=== PATIENT | female | born 1990 | race Caucasian/White ===

== ENCOUNTER 2019-10-05 10:38 | Emergency (ER) | payer BC, SELFPAY ==
[2019-10-05 10:49] VITALS: BP 137/91; PULSE 76; RESP 16; TEMP 36.9; O2SAT 99
--- NOTE | 2019-10-05 10:57 | ED.GENADULT ---
HPI - General Adult General Chief complaint: Skin/Abscess/Foreign Body Stated complaint: rash on feet & legs Time Seen by Provider: 10/05/19 10:57 Source: patient and RN notes reviewed Mode of arrival: ambulatory Limitations: no limitations History of Present Illness HPI narrative: This is a 29 years old female presented office for an evaluation of itchy rash on her feet. She noticed it yesterday around 5 PM while sitting on the sofa. It started very small in one of her feet and then it spread to both feet over night and worse this morning. She also notices some swelling and redness. Denies new medication, drugs, lotion, shoes, clothes or food. The only thing that was new for her was dental extraction that she had on Wednesday with localize anesthesia procedure. She was only taking Tylenol for pain; no prescription pain medications. Related Data Home Medications Medication Instructions Recorded Confirmed Iud 10/05/19 Tylenol 10/05/19 Zyrtec 10/05/19 albuterol sulfate [Ventolin HFA] INHALATION 10/05/19 bupropion HCl mg PO 10/05/19 fluticasone propion-salmeterol INHALATION 10/05/19 [Advair Diskus] lamotrigine 10/05/19 Allergies Allergy/AdvReac Type Severity Reaction Status Date / Time azithromycin Allergy Unknown Verified 06/06/17 09:57 lactose Allergy Unknown Verified 06/06/17 09:57 kathi Allergy Unknown Verified 06/06/17 09:57 Review of Systems Review of Systems: Narrative: CONSTITUTIONAL: Denies fever, chills CARDIOVASCULAR: Denies chest pain RESPIRATORY: Denies dyspnea, cough GASTROINTESTINAL: Denies abdominal pain, nausea, vomiting SKIN:Reports itchy rash on her feet MUSCULOSKELETAL: Denies acute back pain NEUROLOGIC: Denies lightheaded All systems reviewed & are unremarkable except as noted in HPI and below PMFSH Comments At time of signature, I agree with nursing past medical, surgical, social and family history. There is no relevant family history pertinent to the presenting complaint. Exam Narrative: Exam Narrative: GENERAL: This is a well-nourished, well-developed patient, in no apparent distress. THROAT: Mucous membranes moist, posterior pharynx clear. NECK: Neck supple, non-tender without lymphadenopathy, masses or thyromegaly. CARDIOVASCULAR: Regular rate and rhythm without murmurs, gallops, or rubs. RESPIRATORY: Clear to auscultation. Breath sounds equal bilaterally. No wheezes, rales, or rhonchi. GASTROINTESTINAL: Abdomen soft, non-tender, nondistended. Bowel sounds are active.No guarding. SKIN: bilateral feet noted wheel with urticaria that limited to ankles. No calf swelling/tenderness. NEURO: awake, alert, and oriented to person, place and time. There were no obvious focal neurologic abnormalities. Steady gait EXTREMITIES: Normal range of motion. [place] Coma Scale Eye Opening: Spontaneous 4 [place] Coma Scale Motor: Obeys Commands 6 [place] Coma Scale Verbal: Oriented 5 Course Vital Signs Vital signs: Vital Signs Temperature 98.5 F 10/05/19 10:49 Pulse Rate 76 10/05/19 10:49 Respiratory Rate 16 10/05/19 10:49 Blood Pressure 137/91 H 10/05/19 10:49 Pulse Oximetry 99 10/05/19 10:49 Temperature 98.5 F 10/05/19 10:49 Pulse Rate 76 10/05/19 10:49 Respiratory Rate 16 10/05/19 10:49 Blood Pressure 137/91 H 10/05/19 10:49 Pulse Oximetry 99 10/05/19 10:49 Medical Decision Making MDM Narrative Medical decision making narrative: Elevated BP noted: patient is informed that they may have pre-hypertension or hypertension based on a blood pressure reading in the department. I recommend the patient call the primary care provider listed on their discharge instructions or a physician of their choice this week to arrange follow-up for further evaluation of possible pre-hypertension or hypertension within 1-2week. Discharge instructions reviewed with patient, as well as provided in writing per nursing staff. The instructions also include specifi
== END 2019-10-05 11:13 | disposition home or self-care (01) ==
PROVIDERS: Emergency Provider Nurse Practitioner; PCP Nurse Practitioner
DX: L50.9 Urticaria, unspecified (principal); J45.909 Unspecified asthma, uncomplicated; Z98.1 Arthrodesis status; R03.0 Elevated blood-pressure reading, without diagnosis of hypertension; F31.9 Bipolar disorder, unspecified
CPT/HCPCS: 99213; G0463

== ENCOUNTER 2020-02-04 12:44 | Emergency (ER) | payer BC, SELFPAY ==
--- NOTE | ~2020-02-04 | CT_ITS ---
EXAMINATION: CT cervical spine w con DATE: 02/04/2020 13:44 INDICATION: Right upper extremity numbness. TECHNIQUE: Computed tomography (CT) of the cervical spine was performed with 100 mL Omnipaque 350 int ravenous contrast. Automated exposure control and iterative reconstruction technique were employed. T he dose-length product was 322.07 mGy-cm. COMPARISON: None FINDINGS: There is kyphosis and 5 degrees dextrocurvature of cervical spine. Vertebral body heights a re normal. There are changes of anterior fusion procedure at C6-C7 with interbody device and anterior plate and screws. There is mildly decreased disc height at C4-C5 and C5-C6. The following disc level s are specifically discussed: C2-C3: There is no uncovertebral joint osteoarthritis. There is mild right facet joint osteoarthritis . There is no neural foraminal stenosis. There is no central canal stenosis. C3-C4: There is no uncovertebral joint osteoarthritis. There is no facet joint osteoarthritis. There is no neural foraminal stenosis. There is no central canal stenosis. C4-C5: There is no uncovertebral joint osteoarthritis. There is no facet joint osteoarthritis. There is no neural foraminal stenosis. There is mild central canal stenosis. C5-C6: There is no uncovertebral joint osteoarthritis. There is mild bilateral facet joint osteoarthr itis. There is no neural foraminal stenosis. There is mild central canal stenosis. C6-C7: There is no uncovertebral joint hypertrophy. There is no facet joint osteoarthritis. There is no neural foraminal stenosis. There is no central canal stenosis. C7-T1: There is no uncovertebral joint osteoarthritis. There is mild bilateral facet joint osteoarthr itis. There is no neural foraminal stenosis. There is no central canal stenosis. IMPRESSION: 1. Mild cervical spondylosis. 2. Anterior fusion procedure at C6-C7. Reviewed, dictated and finalized at location A.
[2020-02-04 12:45] VITALS: BP 130/86; PULSE 93; RESP 18; TEMP 36.3; O2SAT 100
[2020-02-04 12:49] VITALS: BP 130/86; PULSE 93; RESP 18; TEMP 36.3; O2SAT 100
[2020-02-04] MEDS: diazePAM INJ (*CRX) 10 MG/2 ML SYRINGE 5 MG IV PUSH (13:07)
[2020-02-04 13:12] LABS: Basophils Absolute Auto 0.1 K/mm3 (0.0-0.1); Basophils Percent Auto 0.9 % (0.2-1.2); Eosinophils Absolute Auto 0.2 K/mm3 (0-0.3); Eosinophils Percent Auto 2.7 % (0-4.4); Hematocrit 40.1 % (37.0-47.0); Hemoglobin 13.2 g/dL (12.0-15.0); Immature Granulocyte Absolute 0.01 K/mm3 (0.00-0.031); Immature Granulocyte Percent A 0.2 % (0-0.5); Lymphocytes Absolute Auto 2.55 K/mm3 (0.9-3.2); Lymphocytes Percent Auto 38.6 % (18.3-44.2); Mean Corpuscular HGB Conc 32.9 g/dl (32-36); Mean Corpuscular Hemoglobin 29.7 pg (26-34); Mean Corpuscular Volume 90.1 fl (80-100); Mean Platelet Volume 9.9 fl (7.4-10.4); Monocytes Absolute Auto 0.4 K/mm3 (0.1-0.6); Monocytes Percent Auto 5.9 % (2.6-8.5); Neutrophils Absolute Auto 3.4 K/mm3 (1.3-6.7); Neutrophils Percent Auto 51.7 % (45.5-73.1); Platelet Count Result 397 k/mm3 (150-375); Red Blood Count 4.45 M/mm3 (4.2-5.4); Red Cell Distribution Width 12.8 % (11.5-14.5); White Blood Count 6.6 K/mm3 (4.5-10.0)
[2020-02-04 13:23] LABS: Anion Gap 10 mmol/L (8-16); Blood Urea Nitrogen 5 mg/dL (7-17); Calcium 9.7 mg/dL (8.4-10.2); Carbon Dioxide 23 mmol/L (22-30); Chloride 107 mmol/L (98-107); Estimated CRCL calculation 110 ml/min; Estimated Glomerular Filt Rate > 60; Glucose 109 mg/dL (65-105); Potassium 3.8 mmol/L (3.4-5.0); Sodium 140 mmol/L (137-145)
--- NOTE | 2020-02-04 13:34 | ED.NEUROSD ---
HPI - Neuro Symptoms/Deficit General Chief Complaint: Neuro Symptoms/Deficit Stated Complaint: HANDS NUMB AND TINGLING Time Seen by Provider: 02/04/20 12:53 History of Present Illness HPI Narrative: Patient is a 29-year-old female who presents ER with numbness of her face and arms. Patient reports she was driving to work when she had sudden onset tingling/numbness in her right arm. It then also into her left arm and her face. She thinks the facial tingling is similar to her anxiety. Unfortunately patient has recently had a neck fusion couple months ago at [facility]. It was for similar symptoms in the arms. She reports over the last couple days she started having tightness on the right side of her neck as well as some pain. She has had no numbness or tingling since her surgery. She has no fevers or chills or sweats. No focal weakness that she reports. No trauma to the neck or head. Related Data Home Medications Medication Instructions Recorded Confirmed bupropion HCl 150 mg PO DAILY 10/05/19 02/04/20 lamotrigine 150 mg PO DAILY 10/05/19 02/04/20 Allergies Allergy/AdvReac Type Severity Reaction Status Date / Time azithromycin Allergy Unknown Unknown Verified 02/04/20 12:46 lactose Allergy Unknown Unknown Verified 02/04/20 12:46 kathi Allergy Unknown Unknown Verified 02/04/20 12:46 Review of Systems Review of Systems: All systems reviewed & are unremarkable except as noted in HPI and below Constitutional: Constitutional: Denies chills, Denies fever(s) and Denies weakness Musculoskeletal: Musculoskeletal: Denies back pain and Reports muscle cramps Comments: Neck pain Neurologic: Denies headache(s), Denies focal weakness and Reports numbness PMFSH Past Medical History Medical History (Updated 02/04/20 @ 14:47 by Azael Esteves MD) Bipolar disorder Cervical fusion syndrome Social History Social History (Updated 02/04/20 @ 13:37 by Azael Esteves MD) Smoking status: Light tobacco smoker Exam Narrative: Exam Narrative: GENERAL: Well-appearing, well-nourished, and in no acute distress. HEAD: Normocephalic, atraumatic. NECK: Supple. Range of motion intact. Mild midline tenderness lower cervical spine your C6. She also has some mild paraspinal muscular tenderness along cervical spine extending into the trapezius muscles on the right side. CHEST: Clear to auscultation. No respiratory distress. HEART: Regular rate and rhythm. Normal peripheral pulses. EXTREMITIES: Normal range of motion. No edema. SKIN: Warm, dry, no rash. NEURO: Decreased sharp touch sensation right upper extremity on the dorsal forearm and hand. Subjective paresthesias to entirety of right upper extremity as well as left upper extremity. Alert and oriented x3. Course Course Emergency Course: Patient informed of results. After Valium and IV Tylenol patient reports her face and left arm feel normal and she has improved sensation in the right upper extremity. We will treat with prolonged course of anti-inflammatories as well as muscle relaxers. Patient be started on PPI given previous history of GI bleed after being on NSAIDs for approximately 1 year. Vital Signs Vital signs: Vital Signs Temperature 97.3 F L 02/04/20 12:45 Pulse Rate 93 02/04/20 12:45 Respiratory Rate 18 02/04/20 12:45 Blood Pressure 130/86 02/04/20 12:45 Pulse Oximetry 100 02/04/20 12:45 Temperature 97.3 F L 02/04/20 13:39 Pulse Rate 97 02/04/20 13:50 Respiratory Rate 18 02/04/20 13:50 Blood Pressure 142/92 H 02/04/20 13:50 Pulse Oximetry 100 02/04/20 13:50 MDM - Neuro Symptoms/Deficit Lab Data Result diagrams: 02/04/20 13:03 02/04/20 13:03 Labs: Lab Results 02/04/20 02/04/20 Range/Units 13:03 13:03 WBC 6.6 (4.5-10.0) K/mm3 RBC 4.45 (4.2-5.4) M/mm3 Hgb 13.2 (12.0-15.0) g/dL Hct 40.1 (37.0-47.0) % MCV 90.1 (80-100) fl MCH 29.7 (26-34) pg MCHC 32.9 (
[2020-02-04 13:39] VITALS: TEMP 36.3
[2020-02-04 13:50] VITALS: BP 142/92; PULSE 97; RESP 18; O2SAT 100
[2020-02-04 14:56] VITALS: BP 132/72; PULSE 72; RESP 18; O2SAT 97
== END 2020-02-04 14:57 | disposition home or self-care (01) ==
PROVIDERS: Emergency Provider Emergency Medicine; PCP Nurse Practitioner
DX: M54.12 Radiculopathy, cervical region (principal); R25.2 Cramp and spasm; F31.9 Bipolar disorder, unspecified; F17.200 Nicotine dependence, unspecified, uncomplicated; Z98.1 Arthrodesis status
CPT/HCPCS: 36415; 72126; 80048; 81025; 85025; 96374; 96375; 99284; J0131; J3360; Q9967